=== PATIENT | male | born 1995 ===

== ENCOUNTER 2017-11-16 03:31 | Emergency (ER) | payer OTHER ==
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
[2017-11-16 05:24] VITALS: BP 123/74; PULSE 108; RESP 16; TEMP 98.8
[2017-11-16 05:28] VITALS: O2SAT 97
--- NOTE | 2017-11-16 12:00 | RAD ---
Date of service: 11/16/2017 PROCEDURE: Right Knee Radiographs. HISTORY: right knee injury COMPARISON: None. FINDINGS: BONES: Normal. No fracture. JOINTS: Normal. No osteoarthritis. JOINT EFFUSION: None. OTHER FINDINGS: None. IMPRESSION: Normal radiographs of the right knee.
== END 2017-11-16 05:31 | disposition home or self-care (01) ==
LOC: H.ER 03:31
DX: S76.102A Unspecified injury of left quadriceps muscle, fascia and tendon, initial encounter (principal); F17.200 Nicotine dependence, unspecified, uncomplicated; Z88.0 Allergy status to penicillin; W01.0XXA Fall on same level from slipping, tripping and stumbling without subsequent striking against object, initial encounter